=== PATIENT | female | born 1935 | race Caucasian/White ===

== ENCOUNTER → 2018-09-25 | Outpatient (CLI) | payer MEDICARE ==
[~2018-09-25] MED LIST: ACET325; ACET325 PO; Advair Hfa 230-12 GM; BYDUREON B2 MG/0.85 SQ; CLON.1 PO; DESL5 PO; DIOVAN PO; ERGO400; EXEN10PI; FURO80 PO; Ferus150 MG PO; Flovent Diskus50 MCG; GABA100 PO; GLIP10 PO; HYDRA50 PO; Humalog100 UNIT/1; Hydroxyzine HCl50 MG PO; INSDET100; INSUASPI SC; INSULANI SC; IRON150C PO; LEVFLO500 PO; LOSA25 PO; LOSA50 PO; MELO7.5 PO; METANX PO; METFORMIN PO; Micro-K10 MEQ PO; Neurontin 300300 MG PO; Norco 5-325 Ta1 EACH PO; OMEP20ER PO; ONGLYZA PO; OXYC5 PO; PANT40 PO; POTCHL10ER PO; Prilosec Otc20 MG PO; SPIR50 PO; Vitamin D2000 UNIT PO; Zofran8 MG PO
[2018-09-25 11:10] LABS: Source, Urine Clean Catch
[2018-09-25 11:55] LABS: Bilirubin, Urine Neg (Neg); Blood, Urine 2+ (Neg); Glucose Qualitative, Urine Neg (Neg); Ketones, Urine Neg (Neg); Leukocyte Esterase, Urine 3+ (Neg); Nitrite, Urine Neg (Neg); Protein, Urine 3+ (Neg); Urobilinogen, Urine NORM (Normal)
[2018-09-25 12:04] LABS: Appearance, Urine Hazy (Clear); Color, Urine Yellow (P-Yellow); White Blood Cells, Urine TNTC /hpf (0-5)
[2018-09-25 12:05] LABS: Bacteria Many /hpf; Squamous Epithelial Cells Few /hpf (Few)
== END | disposition home or self-care (01) ==
LOC: LAB 11:08 → LAB SHORT 11:08
PROVIDERS: Internal Medicine
DX: N18.4 Chronic kidney disease, stage 4 (severe) (principal); R35.0 Frequency of micturition
CPT/HCPCS: 81001; 87077; 87086; 87186

== ENCOUNTER → 2019-04-09 | Outpatient (CLI) | payer MEDICARE | END | disposition home or self-care (01) | LOC: LAB 11:33 → LAB SHORT 11:33 | DX: R82.79 Other abnormal findings on microbiological examination of urine (principal) | CPT/HCPCS: 87077; 87086; 87186 ==

== ENCOUNTER → 2019-09-06 | Outpatient (CLI) | payer MEDICARE | END | disposition home or self-care (01) | LOC: LAB 08:58 → LAB SHORT 08:58 | DX: R82.998 Other abnormal findings in urine (principal) | CPT/HCPCS: 87077; 87086; 87186 ==

== ENCOUNTER → 2021-04-21 | Outpatient (CLI) | payer MEDICARE | END | disposition home or self-care (01) | LOC: LAB SHORT 14:05 | DX: R82.998 Other abnormal findings in urine (principal) | CPT/HCPCS: 87077; 87086; 87186 ==

== ENCOUNTER → 2021-12-01 | Outpatient (CLI) | payer MEDICARE | END | disposition home or self-care (01) | LOC: LAB 09:45 → LAB SHORT 09:45 | DX: R30.0 Dysuria (principal) | CPT/HCPCS: 87077; 87086; 87186 ==

== ENCOUNTER 2022-06-01 16:53 | Observation (INO) | payer MEDICARE ==
[~2022-06-01] VITALS: Ht 162.6 cm; Wt 66.9 kg
[~2022-06-01 16:53] MED LIST changes: +ALDACTONE25 MG PO; +FERRIC X-150150 M1 PO
--- NOTE | 2022-06-01 18:37 | NUR ---
PT ARRIVED TO UNIT BY AMBULATION/FWW, ACCOMPANIED BY RELATIVE. ORIENTED PT TO ROOM/CALL LIGHT. CALLED DR BRUCE PER WRITTEN ORDERS TO NOFITY OF ARRIVAL. PT CHANGED INTO GOWN, RESTING IN BED. REPORTED ATE LATE LUNCH AND DECLINED OFFER FOR DINNER. OBTAINED AND RECORDED WEIGHT. CALL LIGHT IN REACH.
[2022-06-01] MEDS ORDERED: BYDUREON B2 MG/0.81 SC (21:34)
--- NOTE | 2022-06-01 22:31 | NUR ---
2039 ATTEMPTED TO GIVE PT SCHEDULED HYDRALAZINE AND CLONIDINE PER EMAR, HOWEVER PT REPORTED TAKING HER 3RD DOSE OF BOTH MEDICATIONS PRIOR TO COMING TO HOSPITAL AROUND 1800. PT HYPERTENSIVE AT THIS TIME WITH SBP 183. NOTIFIED DR BRUCE REGARDING THE FACT PT WAS STILL HYPERTENSIVE EVEN THOUGH SHE HAD FINISHED HER NORMALLY PRESCRIBED DOSES FOR THE DAY. PER DR BRUCE, OK TO GIVE THIS ORDERED DOSE. DR BRUCE ALSO STATED "I PROBABLY WON'T DO MUCH FOR HER BLOOD PRESSURE BUT THAT IS OK, WILL CAN ADDRESS IT TOMORROW". NOTIFIED PT, AGREEABLE TO PLAN BY DR BRUCE.
--- NOTE | 2022-06-02 05:28 | NUR ---
BIOASSAYIST SUMMARY PT WAS A DIRECT ADMIT FOR DR BRUCE JUST BEFORE START OF SHIFT. PT TO GO TO [facility] THIS AM FOR A PROCEDURE RELATED TO AORTIC STENOSIS. HAS BEEN NPO SINCE 0200. PT HAS BEEN HYPERTENSIVE TONIGHT, DR RBUCE IS AWARE AND NO ADDITIONAL ORDERS GIVEN. PT DENIES CP/PRESSURE, ASYMPTOMATIC. STANDBY ASSIST TO BATHROOM, PT USES WALKER AT BASELINE. WILL CONTINUE TO MONITOR.
[2022-06-02 05:45] LABS: BASOPHILS ABSOLUTE AUTO 0.04 K/mm3 (0.00-0.23); BASOPHILS PERCENT AUTO 1 % (0-2); EOSINOPHILS PERCENT AUTO 0 % (0-6); Hematocrit 32.5 % (33.0-51.0); Hemoglobin 10.8 g/dL (11.5-16.0); IMMATURE GRAN ABSOLUTE AUTO 0.03 K/mm3 (0.00-0.10); IMMATURE GRAN PERCENT AUTO 1 % (0-1); LYMPHOCYTES ABSOLUTE AUTO 1.85 K/mm3 (0.84-5.20); LYMPHOCYTES PERCENT AUTO 33 % (21-46); MONOCYTES ABSOLUTE AUTO 0.58 K/mm3 (0.16-1.47); MONOCYTES PERCENT AUTO 10 % (4-13); Mean Corpuscular HGB 31.6 pg (26.0-34.0); Mean Corpuscular HGB Conc 33.2 g/dL (31.5-36.5); Mean Corpuscular Volume 95 fL (80-100); Mean Platelet Volume 10.6 fL (9.1-12.4); NEUTROPHILS ABSOLUTE AUTO 3.15 K/mm3 (1.96-9.15); NEUTROPHILS PERCENT AUTO 56 % (41-73); Platelet Count 203 K/mm3 (150-400); RDW Coefficient Variation 11.9 % (11.7-14.2); RDW Standard Deviation 41.3 fL (35.1-46.3); Red Blood Cell Count 3.42 M/mm3 (3.80-5.20); White Blood Cell Count 5.65 K/mm3 (4.00-11.30)
[2022-06-02 05:58] LABS: Calcium, Blood 9.4 mg/dL (8.5-10.1); Creatinine, Blood 2.17 mg/dL (0.40-1.00); Potassium, Blood 4.1 mmol/L (3.5-5.5)
--- NOTE | 2022-06-02 08:57 | NUR ---
CALLED [facility] THIS MORNING. AWAITING CALL BACK TO CONFIRM IF PO HEART MEDS ARE NEEDED BEFORE PROCREDURE. SEE EMAR.. BP AND HR STABLE THIS MORNING, PT DENIES CP.
--- NOTE | 2022-06-02 11:30 | NUR ---
PT TO [facility] AT ABOUT [id number]
--- NOTE | 2022-06-02 11:45 | NUR ---
REPORT PASSED TO JOB TRACER AT THIS TIME
[2022-06-02] MEDS ORDERED: CARV25 PO (14:08)
--- NOTE | 2022-06-02 16:19 | NUR ---
PT UP TO BATHROOM WITH ASSIST OF 2. DRESSED WITH ASSIST OF 1. PT BACK TO CHAIR. VS STABLE. DISCHARGE REVIEWED WITH PT AND WITH DAUGHTER, BOTH VERBALIZE UNDERSTANDING OF INSTRUCTIONS. TR BAND REMOVED FROM R WRIST, SITE STABLE WITH MINIMAL BRUISING NOTED. CLOTH DOT PLACED AND ARM BOARD PLACED TO R FOREARM, INSTRUCTED TO LEAVE IN PLACE FOR 2 DAYS. SALINE LOCK REMOVED WITH CATHETER INTACT. PT TO PRIVATE VEHICLE PER W/C WITH ONE STAFF.
== END 2022-06-02 16:15 | disposition home or self-care (01) ==
LOC: SURS 16:53 → PCU 06-02 13:07
PROVIDERS: ADMIT Internal Medicine Cardiovascular Disease
DX: I35.0 Nonrheumatic aortic (valve) stenosis (principal); I10 Essential (primary) hypertension; I44.7 Left bundle-branch block, unspecified; E11.22 Type 2 diabetes mellitus with diabetic chronic kidney disease; N18.9 Chronic kidney disease, unspecified; I12.9 Hypertensive chronic kidney disease with stage 1 through stage 4 chronic kidney disease, or unspecified chronic kidney disease; Z88.5 Allergy status to narcotic agent
CPT/HCPCS: 36415; 76937; 80048; 85025; 93454; 99152; 99153; A9270; C1769; C1887; C1894; G0378; J1644; J2250; J3010; J7030; J7040; Q9967

== ENCOUNTER → 2022-12-22 | Outpatient (CLI) | payer MEDICARE ==
[~2022-12-22] MED LIST changes: +AMLODIPINE BESYL5 MG PO; +BYDUREON B2 MG/0.81 SC; +CARV25 PO; +FUROSEMIDE40 MG PO; +GLIP2.5ER PO; +PANTOPRAZOLE SO40 M2 PO
[2022-12-22 19:07] LABS: Creatinine, Urine Random 52.9 mg/dL (27.00-270.00); Protein/Creat Ratio, Ur Random 0.4
== END ==
LOC: LAB SHORT 11:30 → LAB 11:30
PROVIDERS: Internal Medicine Nephrology
DX: N18.5 Chronic kidney disease, stage 5 (principal)
CPT/HCPCS: 82570; 84156

== ENCOUNTER 2023-01-19 09:51 | Emergency (ER) | payer MEDICARE ==
[~2023-01-19] VITALS: Ht 162.6 cm; Wt 65.8 kg
[2023-01-19 11:31] LABS: BASOPHILS ABSOLUTE AUTO 0.04 K/mm3 (0.00-0.23); BASOPHILS PERCENT AUTO 0 % (0-2); EOSINOPHILS ABSOLUTE AUTO 0.03 K/mm3 (0.00-0.68); EOSINOPHILS PERCENT AUTO 0 % (0-6); Hematocrit 29.8 % (33.0-51.0); Hemoglobin 9.8 g/dL (11.5-16.0); IMMATURE GRAN PERCENT AUTO 1 % (0-1); LYMPHOCYTES ABSOLUTE AUTO 0.99 K/mm3 (0.84-5.20); LYMPHOCYTES PERCENT AUTO 7 % (21-46); MONOCYTES ABSOLUTE AUTO 1.25 K/mm3 (0.16-1.47); MONOCYTES PERCENT AUTO 9 % (4-13); Mean Corpuscular HGB 30.7 pg (26.0-34.0); Mean Corpuscular HGB Conc 32.9 g/dL (31.5-36.5); Mean Corpuscular Volume 93 fL (80-100); Mean Platelet Volume 10.4 fL (9.1-12.4); NEUTROPHILS ABSOLUTE AUTO 11.52 K/mm3 (1.96-9.15); NEUTROPHILS PERCENT AUTO 83 % (41-73); Platelet Count 270 K/mm3 (150-400); RDW Coefficient Variation 13.3 % (11.7-14.2); RDW Standard Deviation 45.7 fL (35.1-46.3); Red Blood Cell Count 3.19 M/mm3 (3.80-5.20); White Blood Cell Count 13.93 K/mm3 (4.00-11.30)
[2023-01-19 11:36] VITALS: BP 156/64
[2023-01-19 11:59] LABS: Bun/Creatinine Ratio 19.1 (12.0-20.0); Calcium, Blood 9.8 mg/dL (8.5-10.1); Creatinine, Blood 1.52 mg/dL (0.40-1.00); Potassium, Blood 4.4 mmol/L (3.5-5.5)
[2023-01-19] MEDS ORDERED: SULTRIDS PO (13:32)
== END 2023-01-19 13:53 | disposition home or self-care (01) ==
LOC: ER 09:51
PROVIDERS: Student in an Organized Health Care Education/Training Program
DX: L02.215 Cutaneous abscess of perineum (principal); K64.4 Residual hemorrhoidal skin tags; R06.00 Dyspnea, unspecified; I35.0 Nonrheumatic aortic (valve) stenosis; E11.22 Type 2 diabetes mellitus with diabetic chronic kidney disease; I12.9 Hypertensive chronic kidney disease with stage 1 through stage 4 chronic kidney disease, or unspecified chronic kidney disease; N18.4 Chronic kidney disease, stage 4 (severe); E11.42 Type 2 diabetes mellitus with diabetic polyneuropathy; Z88.6 Allergy status to analgesic agent; Z79.84 Long term (current) use of oral hypoglycemic drugs; Z79.899 Other long term (current) drug therapy
CPT/HCPCS: 46040; 71045; 80048; 83880; 85025; 96374-59; 96376-59; 99285-25; A9270; J1170

== ENCOUNTER → 2023-04-07 | Outpatient (CLI) | payer MEDICARE ==
[~2023-04-07] MED LIST changes: +SULTRIDS PO
[2023-04-07 17:50] LABS: Creatinine, Urine Random 37.3 mg/dL (27.00-270.00); Protein, Urine Random 94.9 mg/dL (0.0-11.9); Protein/Creat Ratio, Ur Random 2.5
== END | disposition home or self-care (01) ==
LOC: LAB SHORT 09:00 → LAB 09:00
PROVIDERS: Internal Medicine Nephrology
DX: I12.9 Hypertensive chronic kidney disease with stage 1 through stage 4 chronic kidney disease, or unspecified chronic kidney disease (principal); N18.32 Chronic kidney disease, stage 3b
CPT/HCPCS: 82570; 84156